=== PATIENT | female | born 1960 | race Caucasian/White ===

== ENCOUNTER → 2017-02-15 15:55 | Outpatient (CLI) | payer MEDICAID ==
[2015-04-17 06:58] VITALS: BMI 27.4
[~2017-02-15 15:55] MED LIST: ATIVAN0.5 MG; BENADRYL25 MG PO; CALTRATE-600600 MG PO; CENTRUM COMPLE1 EACH PO; FISH OIL 1,0001 CA1 PO; FISH OIL 500 MG1 CAP PO; LORTAB 5/500 TA1 TA2 PO; MELATONIN 3 MG1 TAB PO; PROZAC10 MG PO; SYNTHROID50 MCG PO; TYLENOL PM1 TAB PO
== END | disposition home or self-care (01) ==
LOC: D.MAMMO 11:00
DX: R92.8 Other abnormal and inconclusive findings on diagnostic imaging of breast (principal)

== ENCOUNTER 2019-02-08 09:50 | Outpatient (CLI) | payer OTHER ==
[2015-04-17 06:58] VITALS: BMI 27.4
== END 2019-02-08 23:59 | disposition home or self-care (01) ==
LOC: D.MAMMO 09:50
PROVIDERS: ATTEND Nurse Practitioner
DX: Z12.31 Encounter for screening mammogram for malignant neoplasm of breast (principal)